=== PATIENT | male | born 2000 | race Caucasian/White ===

== ENCOUNTER 2020-04-16 20:04 | Inpatient (IN) | payer OTHER, SELFPAY ==
[2020-04-16 20:11] VITALS: BP 136/82; PULSE 82; RESP 20; TEMP 37.1; O2SAT 97
[2020-04-16 20:16] VITALS: BP 136/81; PULSE 82; RESP 20; TEMP 37.1; O2SAT 97; BMI 26.6
[2020-04-16 21:38] VITALS: BP 124/77; PULSE 55; RESP 20; TEMP 36.8; O2SAT 99
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
[2020-04-16 23:47] VITALS: BP 143/94; PULSE 84; RESP 18; TEMP 36.1; O2SAT 95
--- NOTE | 2020-04-17 00:42 | PC.NURSE ---
N clinician with patient and programming instructor, patient seems engaged, will continue to monitor.
--- NOTE | 2020-04-17 01:30 | PC.NURSE ---
Patient being assessed by the [facility] clinician, patient is on section 12, in patient bed search, patient provider made aware. Patient in bed watching TV. Will continue to monitor..
--- NOTE | 2020-04-17 02:04 | PC.NURSE ---
Patient in bed appears sleeping, no distress observed/reported. Respiration +/=/non-labored bilaterally. Will continue to monitor.
--- NOTE | 2020-04-17 06:02 | PC.NURSE ---
Patient in bed appears sleeping, no distress observed/reported, respiration +/=/non-labored bilaterally. Will continue to monitor.
--- NOTE | 2020-04-17 07:22 | PC.NURSE ---
Report received from ANDREW Sharma. Pt resting, resp unlabored
[2020-04-17 08:38] LABS: Glucose Urine UA NEG (NEG); Leukocyte Esterase Urine NEG (NEG); Nitrite Urine NEG (NEG); PH 6.5 (5.0-8.0); Urine Blood NEG (NEG); Urine Ketones NEG (NEG); Urine Protein 1+ MG/DL (NEG-TRACE)
[2020-04-17 08:40] LABS: Appearance Urine CLEAR; Color Urine YELLOW
[2020-04-17 08:50] LABS: RBC Urine 0-2 /HPF (0); WBC Urine 0 /HPF (0-4)
[2020-04-17 09:01] VITALS: BP 126/80; PULSE 57; RESP 16; TEMP 36.6; O2SAT 99
[2020-04-17 09:13] LABS: Amphetamine Screen Urine Not Detected (Not Detect); Barbiturates, Urine Not Detected (Not Detect); Benzodiazepines Screen Urine Not Detected (Not Detect); Cannabinoid Screen Urine POSITIVE (Not Detect); Cocaine Screen Urine Not Detected (Not Detect); Opiate Screen Urine Not Detected (Not Detect); Phencyclidine Screen Urine Not Detected (Not Detect)
[2020-04-17 09:52] VITALS: BP 126/80; PULSE 57; RESP 20; TEMP 36.1; O2SAT 99
--- NOTE | 2020-04-17 11:09 | PC.NURSE ---
Pt evaluated w/ phlebotomy technologist present. pt aware that he will going to [facility]. inpatient process explained to patient. Pt states he has been hospitalized in the past. pt states that at the moment, he is doing well. currently on the phone, affect bright.
[2020-04-17 11:39] LABS: MANUAL DIFF FLAG NO
[2020-04-17 11:51] LABS: Basophils Percent Auto 0.3 % (0-2); Eosinophils Percent Auto 0.4 % (0-4); Hematocrit 49.5 % (42-52); Hemoglobin 17.1 g/dl (14.0-18.0); Imm Gran Abs Auto 0.05 X10*3/uL (0.00-0.03); Imm Gran Pct Auto 0.5 % (0.0-0.4); Lymphocytes Absolute Auto 2.5 X10*3/uL (1.2-4.9); Lymphocytes Percent Auto 23.9 % (20-40); Mean Corpuscular HGB Conc 34.5 g/dl (31.0-36.0); Mean Corpuscular Hemoglobin 31.5 pg (27.0-33.0); Mean Corpuscular Volume 91.3 fL (80-98); Mean Platelet Volume 10.2 fL (9.4-12.4); Monocytes Absolute Auto 0.9 X10*3/uL (0.1-1.2); Monocytes Percent Auto 8.4 % (2-11); Neutrophils Absolute Auto 6.9 X10*3/uL (2.0-8.3); Neutrophils Percent Auto 66.5 % (45-73); Platelet Count 265 X10*3/uL (160-400); Red Blood Count 5.42 X10*6/uL (4.60-5.80); White Blood Count 10.3 X10*3/uL (4.8-10.8)
[2020-04-17 12:29] LABS: SARS COV2 PCR INHOUSE NEGATIVE (Negative)
[2020-04-17 12:31] LABS: Alanine Aminotransferase 12 U/L (0-40); Alkaline Phosphatase 65 U/L (39-117); Anion Gap 13 (12-20); Aspartate Amino Transferase 24 U/L (5-37); Bilirubin Direct 0.4 mg/dL (0.0-0.5); Bilirubin Total 1.3 mg/dL (0.0-1.0); Blood Urea Nitrogen 21 mg/dL (9-16); Calcium 9.9 mg/dL (8.4-10.2); Carbon Dioxide 28 mmol/L (22-29); Chloride 102 mmol/L (96-108); Creatinine Clr Calc Pharmacy 72.8; Estimated Glomerular Filt Rate 59; Glucose Random 87 mg/dL (60-115); Potassium 3.8 mmol/l (3.3-5.1); Sodium 139 mmol/L (135-145)
--- NOTE | 2020-04-17 13:28 | PC.NURSE ---
Report given to ANDREW Franco on [facility]
[2020-04-17 18:00] VITALS: BP 140/88; PULSE 60; RESP 18; TEMP 36.8; O2SAT 98
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
[2020-04-17] MEDS: Mirtazapine 7.5 MG TABLET PO (20:54)
[2020-04-18 06:00] VITALS: BP 137/76; PULSE 59; RESP 18; TEMP 36.8
[2020-04-18 07:44] LABS: MANUAL DIFF FLAG NO
[2020-04-18 07:58] LABS: Basophils Percent Auto 0.4 % (0-2); Eosinophils Absolute Auto 0.1 X10*3/uL (0.0-0.4); Eosinophils Percent Auto 1.1 % (0-4); Hematocrit 47.4 % (42-52); Imm Gran Abs Auto 0.06 X10*3/uL (0.00-0.03); Imm Gran Pct Auto 0.7 % (0.0-0.4); Lymphocytes Percent Auto 33.8 % (20-40); Mean Corpuscular HGB Conc 33.8 g/dl (31.0-36.0); Mean Corpuscular Hemoglobin 31.5 pg (27.0-33.0); Mean Corpuscular Volume 93.3 fL (80-98); Mean Platelet Volume 10.1 fL (9.4-12.4); Monocytes Absolute Auto 0.7 X10*3/uL (0.1-1.2); Monocytes Percent Auto 8.2 % (2-11); Neutrophils Percent Auto 55.8 % (45-73); Platelet Count 225 X10*3/uL (160-400); Red Blood Count 5.08 X10*6/uL (4.60-5.80); Red Cell Distribution Width 12.7 % (11.0-16.0); White Blood Count 8.9 X10*3/uL (4.8-10.8)
[2020-04-18 08:25] LABS: Alanine Aminotransferase 11 U/L (0-40); Albumin Level 4.5 g/dL (3.5-5.0); Alkaline Phosphatase 58 U/L (39-117); Anion Gap 10 (12-20); Aspartate Amino Transferase 21 U/L (5-37); Bilirubin Total 1.3 mg/dL (0.0-1.0); Blood Urea Nitrogen 18 mg/dL (9-16); Calcium 9.5 mg/dL (8.4-10.2); Carbon Dioxide 32 mmol/L (22-29); Chloride 103 mmol/L (96-108); Cholesterol 139 mg/dL; Creatinine Clr Calc Pharmacy 75.3; Estimated Glomerular Filt Rate > 60; Glucose Fasting 80 mg/dL (60-99); HDL Cholesterol 39 mg/dL; LDL Cholesterol Calculated 89 mg/dl; Sodium 141 mmol/L (135-145); Total Protein 7.3 g/dL (6.5-8.0); Triglycerides 55 mg/dL
[2020-04-18 08:39] LABS: Free T4 (Free Thyroxine) 1.24 ng/dL (0.71-1.85); Thyroid Stimulating Hormone 0.24 mIU/mL (0.32-4.0)
[2020-04-18] MEDS: Lidocaine 4 % Patch ADH..PATCH 1 PATCH TRANSDERMA (08:40)
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
[2020-04-18 18:00] VITALS: BP 141/85; PULSE 65; TEMP 35.9
[2020-04-18] MEDS: Mirtazapine 7.5 MG TABLET PO (23:28)
[2020-04-19 06:10] VITALS: BP 138/78; PULSE 51; RESP 16; TEMP 36.3
[2020-04-19] MEDS: Lidocaine 4 % Patch ADH..PATCH 1 PATCH TRANSDERMA (09:21)
[2020-04-19 13:28] LABS: MANUAL DIFF FLAG NO
[2020-04-19] MEDS: Acetaminophen 325 MG TABLET 650 MG PO (13:28)
[2020-04-19 13:32] LABS: Basophils Percent Auto 0.3 % (0-2); Eosinophils Absolute Auto 0.1 X10*3/uL (0.0-0.4); Eosinophils Percent Auto 1.2 % (0-4); Hematocrit 49.1 % (42-52); Hemoglobin 16.9 g/dl (14.0-18.0); Imm Gran Abs Auto 0.05 X10*3/uL (0.00-0.03); Imm Gran Pct Auto 0.5 % (0.0-0.4); Lymphocytes Absolute Auto 2.4 X10*3/uL (1.2-4.9); Lymphocytes Percent Auto 22.7 % (20-40); Mean Corpuscular HGB Conc 34.4 g/dl (31.0-36.0); Mean Corpuscular Hemoglobin 31.8 pg (27.0-33.0); Mean Corpuscular Volume 92.3 fL (80-98); Mean Platelet Volume 10.1 fL (9.4-12.4); Monocytes Absolute Auto 0.9 X10*3/uL (0.1-1.2); Monocytes Percent Auto 8.2 % (2-11); Neutrophils Percent Auto 67.1 % (45-73); Platelet Count 261 X10*3/uL (160-400); Red Blood Count 5.32 X10*6/uL (4.60-5.80); Red Cell Distribution Width 12.6 % (11.0-16.0); White Blood Count 10.4 X10*3/uL (4.8-10.8)
[2020-04-19 14:05] LABS: Alanine Aminotransferase 16 U/L (0-40); Alkaline Phosphatase 69 U/L (39-117); Anion Gap 12 (12-20); Aspartate Amino Transferase 42 U/L (5-37); Bilirubin Total 0.6 mg/dL (0.0-1.0); Blood Urea Nitrogen 22 mg/dL (9-16); Carbon Dioxide 31 mmol/L (22-29); Chloride 101 mmol/L (96-108); Creatinine Clr Calc Pharmacy 76.9; Estimated Glomerular Filt Rate > 60; Glucose Random 80 mg/dL (60-115); Potassium 4.2 mmol/l (3.3-5.1); Sodium 140 mmol/L (135-145)
[2020-04-19 14:13] LABS: Calcium 10.3 mg/dL (8.4-10.2)
[2020-04-19 14:19] LABS: TSH reflex Free T4 0.34 mIU/mL (0.32-4.0)
[2020-04-19 14:25] LABS: Glucose Urine UA NEG (NEG); Leukocyte Esterase Urine NEG (NEG); Nitrite Urine NEG (NEG); PH 6.5 (5.0-8.0); Urine Blood 1+ (NEG); Urine Ketones NEG (NEG); Urine Protein 2+ MG/DL (NEG-TRACE)
[2020-04-19 14:38] LABS: Appearance Urine CLEAR; Color Urine YELLOW
[2020-04-19 14:59] LABS: RBC Urine 0 /HPF (0); Squamous Epithelial Cell Urine TRACE /LPF; WBC Urine 0 /HPF (0-4)
[2020-04-19 18:00] VITALS: BP 131/93; PULSE 83; TEMP 37.1
[2020-04-19] MEDS: Mirtazapine 7.5 MG TABLET PO (20:20)
[2020-04-19 21:20] VITALS: BP 132/97; PULSE 90; TEMP 36.5
--- NOTE | 2020-04-19 23:38 | HO.PSYCHPN ---
Subjective Subjective Reason For Visit: Anxiety Subjective Notes: Conditional Voluntary Interim History: pt depressed withdrawn anxious Medication Compliance: Yes Side effects from medications: Yes Mental Status Exam Mental Status Exam Patient Appearance: Well Grooomed Patient Orientation: Person, Place, Time and Situation Level of Consciousness: Awake Patient Behavior: Appropriate Affect Description: Constricted, Anxious and Sad Ability to Follow Directions: Good Diagnostics Vital Signs (24Hr): Vital Signs - 24 hr 04/19/20 06:10 04/19/20 18:00 04/19/20 21:20 Temperature 97.4 F 98.7 F 97.7 F Pulse Rate 51 83 90 Respiratory Rate 16 Blood Pressure 138/78 131/93 H 132/97 H Body Mass Index 26.6 Labs Results: 04/19/20 13:15 04/20/20 15:06 Labs: Laboratory Results - last 48 hr 04/18/20 04/18/20 04/19/20 07:33 07:33 13:15 WBC 8.9 RBC 5.08 Hgb 16.0 Hct 47.4 MCV 93.3 MCH 31.5 MCHC 33.8 RDW 12.7 Plt Count 225 MPV 10.1 Immature Gran % (Auto) 0.7 H Neut % (Auto) 55.8 Lymph % (Auto) 33.8 [place] % (Auto) 8.2 Eos % (Auto) 1.1 Baso % (Auto) 0.4 Lymph # (Auto) 3.0 [place] # (Auto) 0.7 Eos # (Auto) 0.1 Baso # (Auto) 0.0 Abs Immat Gran (auto) 0.06 H Absolute Neuts (auto) 5.0 Absolute Nucleated RBC 0.000 Nucleated RBC % (auto) 0.0 Sodium 141 140 Potassium 4.0 4.2 Chloride 103 101 Carbon Dioxide 32 H 31 H Anion Gap 10 L 12 BUN 18 H 22 H Creatinine 1.45 H 1.42 H Estim Creat Clear Calc 75.3 76.9 Estimated GFR > 60 > 60 Random Glucose 80 Fasting Glucose 80 Calcium 9.5 10.3 H Total Bilirubin 1.3 H 0.6 AST 21 42 H D ALT 11 16 Alkaline Phosphatase 58 69 Total Protein 7.3 8.0 Albumin 4.5 5.0 Triglycerides 55 Cholesterol 139 LDL Cholesterol, Calc 89 HDL Cholesterol 39 TSH 0.24 L Free T4 1.24 Urine Color Urine Appearance Urine pH Ur Specific [place] Urine Protein Urine Glucose (UA) Urine Ketones Urine Blood Urine Nitrite Ur Leukocyte Esterase Urine RBC Urine WBC Ur Squamous Epith Cells Urine Bacteria Urine Sperm 04/19/20 04/19/20 04/19/20 13:15 13:15 14:13 WBC 10.4 RBC 5.32 Hgb 16.9 Hct 49.1 MCV 92.3 MCH 31.8 MCHC 34.4 RDW 12.6 Plt Count 261 MPV 10.1 Immature Gran % (Auto) 0.5 H Neut % (Auto) 67.1 Lymph % (Auto) 22.7 [place] % (Auto) 8.2 Eos % (Auto) 1.2 Baso % (Auto) 0.3 Lymph # (Auto) 2.4 [place] # (Auto) 0.9 Eos # (Auto) 0.1 Baso # (Auto) 0.0 Abs Immat Gran (auto) 0.05 H Absolute Neuts (auto) 7.0 Absolute Nucleated RBC 0.000 Nucleated RBC % (auto) 0.0 Sodium Potassium Chloride Carbon Dioxide Anion Gap BUN Creatinine Estim Creat Clear Calc Estimated GFR Random Glucose Fasting Glucose Calcium Total Bilirubin AST ALT Alkaline Phosphatase Total Protein Albumin Triglycerides Cholesterol LDL Cholesterol, Calc HDL Cholesterol TSH 0.34 Free T4 Urine Color YELLOW Urine Appearance CLEAR Urine pH 6.5 Ur Specific [place] 1.020 Urine Protein 2+ H Urine Glucose (UA) NEG Urine Ketones NEG Urine Blood 1+ H Urine Nitrite NEG Ur Leukocyte Esterase NEG Urine RBC 0 Urine WBC 0 Ur Squamous Epith Cells TRACE Urine Bacteria NONE Urine Sperm Medications Medications Current Medications Generic Name Dose Route Start Last Admin Trade Name Freq PRN Reason Stop Dose Admin Acetaminophen 650 mg 04/17/20 17:51 04/19/20 13:28 Acetaminophen 325 Mg Tablet PO 650 mg Q6H PRN Administration Headache/Pain Mild Scale (1-3) Al Hydroxide/Mg Hydroxide 30 ml 04/17/20 17:51 Magnesium Hydrox/Alum Hydrox 30 Ml Oral.Susp PO Q6H PRN Heartburn/Nausea Hydroxyzine HCl 25 mg 04/17/20 17:51 Hydroxyzine Hcl 25 Mg Tablet PO BEDTIME PRN Anxiety Lidocaine 1 patch 04/18/20 09:00 04/19/20 09:21 Lidocaine 4 % Patch Adh..Patch TRANSDERMA 1 patch DAILY [place] Administration Protocol Lorazepam 0.5 mg 04/17/20 18:00 Lorazepam 0.5 Mg Tablet PO Q8H PRN Anxiety Magnesium Hydroxide 30 ml 04/17/20 17:51 Milk Of Magnesia 30 Ml Oral.Susp PO DAILY PRN Constipation Mirtazapine 7.5 mg 04/17/20 21:00 04/19/20 20:20 Mirtazapine 7.5 Mg Tablet PO 7.5 mg BEDTIME [place] Administration Pt Own: Clotrimazole 1 each 04/19/20 09:00 04/19/20 20:20 /Betamethasone Cream TOPICAL 1 each BID [place] Administration Trazodone HCl 50 mg 04/17/20 17:51 Trazodone Hcl 50 Mg Tablet PO BEDTIME PRN Insomnia Allergies Allergies Allergy/AdvReac Type Severity Reaction Status Date / Time aripiprazole [From Abilify] AdvReac Restless/Ag Verified 04/18/20 15:31 itation methylphenidate AdvReac Restless/Ag Verified 04/18/20 15:31 [From Ritalin] itation Assessment & Plan Assessment & Plan (1) CKD (chronic kidney disease): Status: Chronic Code(s): N18.9 - Chronic kidney disease, unspecified Assessment and Plan: 19-year-old man admitted to for behavioral health. He reported history long-term arthritis, high blood pressure and possible kidney disease. He reports that he does not take any medication for his blood pressure and has not seen any specialists in the past. Hypertension. Stable blood pressure this time, not on any antihypertensives. Will hold off on starting any medication, he will need to follow up with a primary care provider as outpatient. CKD. Seems chronic, likely related to high blood pressure is well. Will also check A1c. Will consult nephrology, for follow up regarding renal function. Discussed with Dr. Gonzalez (2) Major depression, single episode: Status: Acute Code(s): F32.9 - Major depressive disorder, single episode, unspecified (3) PTSD (post-traumatic stress disorder): Status: Acute Code(s): F43.10 - Post-traumatic stress disorder, unspecified Greater than 50% of the session was spent on counseling and/or coordination of care Patient educated on: diagnosis and medication risk/benefits Informed Consent: understands
[2020-04-20 06:19] VITALS: BP 117/70; PULSE 52; RESP 16; TEMP 36.2; O2SAT 100
[2020-04-20] MEDS: Lidocaine 4 % Patch ADH..PATCH 1 PATCH TRANSDERMA (09:04)
--- NOTE | 2020-04-20 14:36 | P.CONIM_ITS ---
History of Present Illness Data of Consult Service Date: 04/20/20 Requesting physician: Galo Helms Primary Care Provider: Roshan Cook MD [facility] Reason for consult: medical consultation 19-year-old man with history of hypertension, chronic kidney disease and depression admitted to for behavioral health. He denied any acute medical problems. His vital signs are stable. Does have a history of hypertension and chronic kidney disease however is not currently being treated for either at this time. His vital signs and labs are within acceptable limits. Review of Systems Review of Systems: Denies any recent fever chills or decrease in appetite respiratory denies any shortness of breath coverage production cardiovascular is adjustment of any PND or edema gastrointestinal denies any dysphagia abdominal pain nausea vomiting or diarrhea genitourinary denies any dysuria frequency or hematuria musculoskeletal reports chronic pain from arthritis neuropsych denies any weakness or seizures all other systems reviewed are negative [facility] Medical History (Updated 04/20/20 @ 14:38 by Melody Birch NP) CKD (chronic kidney disease) Hypertension Pertinent family history: Denies cardiac disease Surgical History (Updated 04/20/20 @ 15:47 by Melody Birch NP) H/O wrist surgery Social History Household Members: Spouse Housing: Apartment Do you presently have visiting nurse or other home services: No Smoking Status: Former smoker Smoked in Last 30 Days: Yes Smoking Quit Date: 04/15/20 Patient Interested in Nicotine Replacement: No Patient Given Instructions on How to Stop Smoking: No Second Hand Smoke Exposure: No Use of substances other than those prescribed or required for medical reasons: Yes Substance Use Type: Marijuana Substance Use Frequency: Chronic Longstanding Last Used Substance: Days (ago) Currently Displaying Signs/Symptoms of Drug Intoxication Withdrawal: No Any prior treatment program specific to substance use: No Have you been hit, kicked, punched, or otherwise hurt by someone within the past year? If so, by whom?: No Do you feel safe in your current relationship?: Yes Is there a partner from a previous relationship who is making you feel unsafe now?: No Are you made to feel afraid or neglected: No Spiritual Healthcare Practices: n/a Tenriism Healthcare Practices: n/a Cultural Healthcare Practices: n/a Advance Directives: No Advance Directives Information Provided: Yes Do you have thoughts of harming others: None Do you have a plan to hurt others: No Plan Recently lost weight without trying: Yes service: No Sexual orientation: Straight/Heterosexual Meds Allergies Allergy/AdvReac Type Severity Reaction Status Date / Time aripiprazole [From Abilify] AdvReac Restless/Ag Verified 04/18/20 15:31 itation methylphenidate AdvReac Restless/Ag Verified 04/18/20 15:31 [From Ritalin] itation Physical Exam Vital Signs and Narrative: Vital Signs: Last Vital Signs Temp 97.1 F 04/20/20 06:19 Pulse 52 04/20/20 06:19 Resp 16 04/20/20 06:19 BP 117/70 04/20/20 06:19 Pulse Ox 100 04/20/20 06:19 Body Mass Index 26.6 Appearing in no acute distress head is normocephalic atraumatic eyes pupils are PERRLA sclera is anicteric mouth throat mucous membranes are intact and moist neck is supple no lymphadenopathy, no JVD noted lung sounds are clear to auscultation heart regular rate rhythm, clear S1, S2 positive bowel sounds, abdomen is soft, nontender neuro patient is alert x3, no focal deficits Results Labs Labs: Laboratory Tests 04/17/20 04/17/20 04/17/20 08:18 08:18 11:27 WBC 10.3 RBC 5.42 Hgb 17.1 Hct 49.5 MCV 91.3 MCH 31.5 MCHC 34.5 RDW 13.0 Plt Count 265 MPV 10.2 Immature Gran % (Auto) 0.5 H Neut % (Auto) 66.5 Lymph % (Auto) 23.9 Elliott % (Auto) 8.4 Eos % (Auto) 0.4 Baso % (Auto) 0.3 Lymph # (Auto) 2.5 Elliott # (Auto) 0.9 Eos # (Auto) 0.0 Baso # (Auto) 0.0 Abs Immat Gran (auto) 0.05 H Absolute Neuts (auto) 6.9 Absolute Nucleated RBC 0.000 Nucleated RBC % (auto) 0.0 Sodium Potassium Chloride Carbon Dioxide Anion Gap BUN Creatinine Estim Creat Clear Calc Estimated GFR Random Glucose Fasting Glucose Calcium Total Bilirubin Direct Bilirubin AST ALT Alkaline Phosphatase Total Protein Albumin Triglycerides Cholesterol LDL Cholesterol, Calc HDL Cholesterol TSH Free T4 Urine Color YELLOW Urine Appearance CLEAR Urine pH 6.5 Ur Specific [place] 1.020 Urine Protein 1+ H Urine Glucose (UA) NEG Urine Ketones NEG Urine Blood NEG Urine Nitrite NEG Ur Leukocyte Esterase NEG Urine RBC 0-2 Urine WBC 0 Ur Squamous Epith Cells NONE Urine Bacteria NONE Urine Sperm Urine Opiates Screen Not Detected Ur Barbiturates Screen Not Detected Ur Phencyclidine Scrn Not Detected Ur Amphetamines Screen Not Detected U Benzodiazepines Scrn Not Detected Urine Cocaine Screen Not Detected U Marijuana (THC) Screen POSITIVE H Coronavirus (PCR) 04/17/20 04/17/20 04/18/20 11:27 11:27 07:33 WBC 8.9 RBC 5.08 Hgb 16.0 Hct 47.4 MCV 93.3 MCH 31.5 MCHC 33.8 RDW 12.7 Plt Count 225 MPV 10.1 Immature Gran % (Auto) 0.7 H Neut % (Auto) 55.8 Lymph % (Auto) 33.8 Elliott % (Auto) 8.2 Eos % (Auto) 1.1 Baso % (Auto) 0.4 Lymph # (Auto) 3.0 Elliott # (Auto) 0.7 Eos # (Auto) 0.1 Baso # (Auto) 0.0 Abs Immat Gran (auto) 0.06 H Absolute Neuts (auto) 5.0 Absolute Nucleated RBC 0.000 Nucleated RBC % (auto) 0.0 Sodium 139 Potassium 3.8 Chloride 102 Carbon Dioxide 28 Anion Gap 13 BUN 21 H Creatinine 1.50 H Estim Creat Clear Calc 72.8 Estimated GFR 59 Random Glucose 87 Fasting Glucose Calcium 9.9 Total Bilirubin 1.3 H Direct Bilirubin 0.4 AST 24 ALT 12 Alkaline Phosphatase 65 Total Protein 8.0 Albumin 5.0 Triglycerides Cholesterol LDL Cholesterol, Calc HDL Cholesterol TSH Free T4 Urine Color Urine Appearance Urine pH Ur Specific [place] Urine Protein Urine Glucose (UA) Urine Ketones Urine Blood Urine Nitrite Ur Leukocyte Esterase Urine RBC Urine WBC Ur Squamous Epith Cells Urine Bacteria Urine Sperm Urine Opiates Screen Ur Barbiturates Screen Ur Phencyclidine Scrn Ur Amphetamines Screen U Benzodiazepines Scrn Urine Cocaine Screen U Marijuana (THC) Screen Coronavirus (PCR) NEGATIVE 04/18/20 04/19/20 04/19/20 07:33 13:15 13:15 WBC 10.4 RBC 5.32 Hgb 16.9 Hct 49.1 MCV 92.3 MCH 31.8 MCHC 34.4 RDW 12.6 Plt Count 261 MPV 10.1 Immature Gran % (Auto) 0.5 H Neut % (Auto) 67.1 Lymph % (Auto) 22.7 Elliott % (Auto) 8.2 Eos % (Auto) 1.2 Baso % (Auto) 0.3 Lymph # (Auto) 2.4 Elliott # (Auto) 0.9 Eos # (Auto) 0.1 Baso # (Auto) 0.0 Abs Immat Gran (auto) 0.05 H Absolute Neuts (auto) 7.0 Absolute Nucleated RBC 0.000 Nucleated RBC % (auto) 0.0 Sodium 141 140 Potassium 4.0 4.2 Chloride 103 101 Carbon Dioxide 32 H 31 H Anion Gap 10 L 12 BUN 18 H 22 H Creatinine 1.45 H 1.42 H Estim Creat Clear Calc 75.3 76.9 Estimated GFR > 60 > 60 Random Glucose 80 Fasting Glucose 80 Calcium 9.5 10.3 H Total Bilirubin 1.3 H 0.6 Direct Bilirubin AST 21 42 H D ALT 11 16 Alkaline Phosphatase 58 69 Total Protein 7.3 8.0 Albumin 4.5 5.0 Triglycerides 55 Cholesterol 139 LDL Cholesterol, Calc 89 HDL Cholesterol 39 TSH 0.24 L Free T4 1.24 Urine Color Urine Appearance Urine pH Ur Specific [place] Urine Protein Urine Glucose (UA) Urine Ketones Urine Blood Urine Nitrite Ur Leukocyte Esterase Urine RBC Urine WBC Ur Squamous Epith Cells Urine Bacteria Urine Sperm Urine Opiates Screen Ur Barbiturates Screen Ur Phencyclidine Scrn Ur Amphetamines Screen U Benzodiazepines Scrn Urine Cocaine Screen U Marijuana (THC) Screen Coronavirus (PCR) 04/19/20 04/19/20 13:15 14:13 WBC RBC Hgb Hct MCV MCH MCHC RDW Plt Count MPV Immature Gran % (Auto) Neut % (Auto) Lymph % (Auto) Elliott % (Auto) Eos % (Auto) Baso % (Auto) Lymph # (Auto) Elliott # (Auto) Eos # (Auto) Baso # (Auto) Abs Immat Gran (auto) Absolute Neuts (auto) Absolute Nucleated RBC Nucleated RBC % (auto) Sodium Potassium Chloride Carbon Dioxide Anion Gap BUN Creatinine Estim Creat Clear Calc Estimated GFR Random Glucose Fasting Glucose Calcium Total Bilirubin Direct Bilirubin AST ALT Alkaline Phosphatase Total Protein Albumin Triglycerides Cholesterol LDL Cholesterol, Calc HDL Cholesterol TSH 0.34 Free T4 Urine Color YELLOW Urine Appearance CLEAR Urine pH 6.5 Ur Specific [place] 1.020 Urine Protein 2+ H Urine Glucose (UA) NEG Urine Ketones NEG Urine Blood 1+ H Urine Nitrite NEG Ur Leukocyte Esterase NEG Urine RBC 0 Urine WBC 0 Ur Squamous Epith Cells TRACE Urine Bacteria NONE Urine Sperm Urine Opiates Screen Ur Barbiturates Screen Ur Phencyclidine Scrn Ur Amphetamines Screen U Benzodiazepines Scrn Urine Cocaine Screen U Marijuana (THC) Screen Coronavirus (PCR) Assessment and Plan (1) CKD (chronic kidney disease): Status: Chronic 19-year-old man admitted to for behavioral health. He reported his tory long-term arthritis, high blood pressure and possible kidney disease. He reports that he does not take any medication for his blood pressure and has not seen any specialists in the past. Hypertension. Stable blood pressure this time, not on any antihypertensives. Will hold off on starting any medication, he will need to follow up with a primary care provider as outpatient. CKD. Seems chronic, likely related to high blood pressure is well. Will also check A1c. Will consult nephrology, for follow up regarding renal function. Discussed with Dr. Gonzalez
[2020-04-20 14:59] LABS: Glucose Urine UA NEG (NEG); Leukocyte Esterase Urine NEG (NEG); Nitrite Urine NEG (NEG); Urine Blood TRACE (NEG); Urine Ketones NEG (NEG); Urine Protein 2+ MG/DL (NEG-TRACE)
[2020-04-20 15:02] LABS: Appearance Urine CLEAR; Color Urine STRAW
[2020-04-20 15:29] LABS: Estimated Average Glucose 97 mg/dL
[2020-04-20 15:48] LABS: Anion Gap 15 (12-20); Blood Urea Nitrogen 26 mg/dL (9-16); Calcium 9.5 mg/dL (8.4-10.2); Carbon Dioxide 27 mmol/L (22-29); Chloride 104 mmol/L (96-108); Estimated Glomerular Filt Rate > 60; Glucose Random 83 mg/dL (60-115); Potassium 4.5 mmol/l (3.3-5.1); Sodium 141 mmol/L (135-145)
[2020-04-20 16:00] LABS: RBC Urine 0-2 /HPF (0); WBC Urine 0 /HPF (0-4)
[2020-04-20 18:00] VITALS: BP 125/86; PULSE 66; TEMP 36.5
[2020-04-20 19:43] LABS: Triiodothyronine T3 Free 3.2 pg/mL (2.3-4.2)
[2020-04-20] MEDS: Mirtazapine 7.5 MG TABLET PO (21:56)
[2020-04-21 06:00] VITALS: BP 149/81; PULSE 53; RESP 16; TEMP 36.6
[2020-04-21 18:00] VITALS: BP 139/97; PULSE 78; TEMP 36.5
--- NOTE | 2020-04-21 20:20 | PM.CNNEP ---
History of Present Illness Reason for Consult Consult date: 04/21/20 Reason for consult: HTN and incr Scr Chief Complaint Chief complaint: Anxiety History of Present Illness Narrative: Admit d/t severe anxiety and noted incr Scr and HTN. Unclear if he has a h/o of these problems or been on meds to control HTN chronically. No Cp/SOB. Denies use of NSAIDs. No H/O kidney stones or GH. No FHx of kidney probs. Review of Systems Review of Systems Yes all other systems are reviewed and are negative [facility] Past Medical History Medical History (Updated 04/20/20 @ 14:38 by Melody Birch NP) CKD (chronic kidney disease) Hypertension Family History Pertinent family history: Denies cardiac disease Surgical History Surgical History (Updated 04/20/20 @ 15:47 by Melody Birch NP) H/O wrist surgery Social History Social History Household Members: Spouse Housing: Apartment Do you presently have visiting nurse or other home services: No Smoking Status: Former smoker Smoked in Last 30 Days: Yes Smoking Quit Date: 04/15/20 Patient Interested in Nicotine Replacement: No Patient Given Instructions on How to Stop Smoking: No Second Hand Smoke Exposure: No Use of substances other than those prescribed or required for medical reasons: Yes Substance Use Type: Marijuana Substance Use Frequency: Chronic Longstanding Last Used Substance: Days (ago) Currently Displaying Signs/Symptoms of Drug Intoxication Withdrawal: No Any prior treatment program specific to substance use: No Have you been hit, kicked, punched, or otherwise hurt by someone within the past year? If so, by whom?: No Do you feel safe in your current relationship?: Yes Is there a partner from a previous relationship who is making you feel unsafe now?: No Are you made to feel afraid or neglected: No Spiritual Healthcare Practices: n/a Bahai Healthcare Practices: n/a Cultural Healthcare Practices: n/a Advance Directives: No Advance Directives Information Provided: Yes Do you have thoughts of harming others: None Do you have a plan to hurt others: No Plan Recently lost weight without trying: Yes service: No Sexual orientation: Straight/Heterosexual Meds Allergies Allergy/AdvReac Type Severity Reaction Status Date / Time aripiprazole [From Abilify] AdvReac Restless/Ag Verified 04/18/20 15:31 itation methylphenidate AdvReac Restless/Ag Verified 04/18/20 15:31 [From Ritalin] itation Home Medications Medication Instructions Recorded Confirmed Type No Known Home Meds 04/21/20 04/21/20 History Physical Exam Vital Signs: Vital Signs Temp Pulse Resp BP 04/21/20 06:00 97.9 F 53 16 149/81 H Body Mass Index 26.6 Appearing in no acute distress head is normocephalic atraumatic eyes pupils are PERRLA sclera is anicteric mouth throat mucous membranes are intact and moist neck is supple no lymphadenopathy, no JVD noted lung sounds are clear to auscultation heart regular rate rhythm, clear S1, S2 positive bowel sounds, abdomen is soft, nontender neuro patient is alert x3, no focal deficits Results Lab Results Result Diagrams: 04/19/20 13:15 04/20/20 15:06 Lab results: Chemistry 04/19/20 04/20/20 13:15 15:06 Sodium 140 141 Potassium 4.2 4.5 Carbon Dioxide 31 H 27 BUN 22 H 26 H Creatinine 1.42 H 1.40 Calcium 10.3 H 9.5 Hematology 04/19/20 13:15 WBC 10.4 Hgb 16.9 Plt Count 261 Urinalysis 04/19/20 04/20/20 14:13 13:57 Urine Color YELLOW STRAW Urine Appearance CLEAR CLEAR Urine pH 6.5 6.0 Ur Specific [place] 1.020 1.020 Urine Protein 2+ H 2+ H Urine Glucose (UA) NEG NEG Urine Ketones NEG NEG Urine Blood 1+ H TRACE Urine Nitrite NEG NEG Ur Leukocyte Esterase NEG NEG Urine RBC 0 0-2 Urine WBC 0 0 Ur Squamous Epith Cells TRACE NONE Assessment and Plan (1) CKD (chronic kidney disease): Status: Chronic 19-year-old man admitted to for behavioral health. Ques of HTN and CKD as PMH unclear. He denies taking BP meds. 1. HTN: BPs noted elevated; ques essential HTN and may need to start meds if remains elevated 2. CKD 2: ques CKD; needs furhter eval including sero/urine studies 3. Psych REC: urone prot/Cr ratio and Urine microalb/Cr ratio; track BPs and futher sero/urine studies and renal U/S likely needed but will reassess need for these tests over next 1-2 days as we track BP and check urine studies (2) Major depression, single episode: Status: Acute (3) PTSD (post-traumatic stress disorder): Status: Acute
[2020-04-21] MEDS: Mirtazapine 7.5 MG TABLET PO (21:58)
--- NOTE | 2020-04-21 23:00 | HO.PSYCHPN ---
Subjective Subjective Reason For Visit: Anxiety Interim History: pt depressed withdrawn anxious ,but improving with mirtazapine MED CONSULT FOR RENAL INSUFF Mental Status Exam Mental Status Exam Patient Appearance: Well Grooomed Patient Orientation: Person, Place, Time and Situation Level of Consciousness: Awake Patient Behavior: Appropriate and Good Eye Contact Mood Description: Calm, Constricted and Flat Affect Description: Constricted, Anxious and Sad (improving) Ability to Follow Directions: Good Speech Pattern: Clear Memory Description: Intact Hallucinations: Visual (vague shadows ) Delusions: Not Present Thought Content: positive for [place], negative for Suicidal Ideation and negative for Homicidal Ideation Depressive Symptoms: Increased Anxiety, Insomnia and Diff. Making Decisions Judgement: Good Diagnostics Vital Signs (24Hr): Vital Signs - 24 hr 04/21/20 06:00 Temperature 97.9 F Pulse Rate 53 Respiratory Rate 16 Blood Pressure 149/81 H Body Mass Index 26.6 Labs Results: 04/19/20 13:15 04/20/20 15:06 Labs: Laboratory Results - last 48 hr 04/19/20 04/20/20 04/20/20 13:15 13:57 15:06 Sodium 141 Potassium 4.5 Chloride 104 Carbon Dioxide 27 Anion Gap 15 BUN 26 H Creatinine 1.40 Estim Creat Clear Calc 78.0 Estimated GFR > 60 Random Glucose 83 Estimat Average Glucose Hemoglobin A1c % Calcium 9.5 Free T3 3.2 Urine Color STRAW Urine Appearance CLEAR Urine pH 6.0 Ur Specific [place] 1.020 Urine Protein 2+ H Urine Glucose (UA) NEG Urine Ketones NEG Urine Blood TRACE Urine Nitrite NEG Ur Leukocyte Esterase NEG Urine RBC 0-2 Urine WBC 0 Ur Squamous Epith Cells NONE Urine Bacteria NONE 04/20/20 15:06 Sodium Potassium Chloride Carbon Dioxide Anion Gap BUN Creatinine Estim Creat Clear Calc Estimated GFR Random Glucose Estimat Average Glucose 97 Hemoglobin A1c % 5.0 Calcium Free T3 Urine Color Urine Appearance Urine pH Ur Specific [place] Urine Protein Urine Glucose (UA) Urine Ketones Urine Blood Urine Nitrite Ur Leukocyte Esterase Urine RBC Urine WBC Ur Squamous Epith Cells Urine Bacteria Medications Medications Current Medications Generic Name Dose Route Start Last Admin Trade Name Freq PRN Reason Stop Dose Admin Acetaminophen 650 mg 04/17/20 17:51 04/19/20 13:28 Acetaminophen 325 Mg Tablet PO 650 mg Q6H PRN Administration Headache/Pain Mild Scale (1-3) Al Hydroxide/Mg Hydroxide 30 ml 04/17/20 17:51 Magnesium Hydrox/Alum Hydrox 30 Ml Oral.Susp PO Q6H PRN Heartburn/Nausea Hydroxyzine HCl 25 mg 04/17/20 17:51 Hydroxyzine Hcl 25 Mg Tablet PO BEDTIME PRN Anxiety Lorazepam 0.5 mg 04/17/20 18:00 Lorazepam 0.5 Mg Tablet PO Q8H PRN Anxiety Magnesium Hydroxide 30 ml 04/17/20 17:51 Milk Of Magnesia 30 Ml Oral.Susp PO DAILY PRN Constipation Mirtazapine 7.5 mg 04/17/20 21:00 04/21/20 21:58 Mirtazapine 7.5 Mg Tablet PO 7.5 mg BEDTIME GE[place]NA Administration Pt Own: Clotrimazole 1 each 04/19/20 09:00 04/21/20 21:58 /Betamethasone Cream TOPICAL 1 each BID [place] Administration Trazodone HCl 50 mg 04/17/20 17:51 Trazodone Hcl 50 Mg Tablet PO BEDTIME PRN Insomnia Allergies Allergies Allergy/AdvReac Type Severity Reaction Status Date / Time aripiprazole [From Abilify] AdvReac Restless/Ag Verified 04/18/20 15:31 itation methylphenidate AdvReac Restless/Ag Verified 04/18/20 15:31 [From Ritalin] itation Assessment & Plan Assessment & Plan (1) CKD (chronic kidney disease): Status: Chronic Code(s): N18.9 - Chronic kidney disease, unspecified Assessment and Plan: 19-year-old man admitted to for behavioral health. Ques of HTN and CKD as PMH unclear. He denies taking BP meds. 1. HTN: BPs noted elevated; ques essential HTN and may need to start meds if remains elevated 2. CKD 2: ques CKD; needs furhter eval including sero/urine studies 3. Psych REC: urone prot/Cr ratio and Urine microalb/Cr ratio; track BPs and futher sero/urine studies and renal U/S likely needed but will reassess need for these tests over next 1-2 days as we track BP and check urine studies (2) Major depression, single episode: Status: Acute Code(s): F32.9 - Major depressive disorder, single episode, unspecified Assessment and Plan: continue mirtazapine adjust as needed (3) PTSD (post-traumatic stress disorder): Status: Acute Code(s): F43.10 - Post-traumatic stress disorder, unspecified Assessment and Plan: psychoeducation continue mirtazapine id no significant current PTSD symptoms Greater than 50% of the session was spent on counseling and/or coordination of care Patient educated on: diagnosis, medication risk/benefits and medical condition Reason for contiued inpatient stay Substantial Risk for: inability to function and rapid decompensation
[2020-04-22 06:25] VITALS: BP 143/86; PULSE 47; RESP 16; TEMP 36.4; O2SAT 99
[2020-04-22 12:08] LABS: Creatinine Urine 110.58 mg/dL
[2020-04-22 12:17] LABS: Microalbum/Creatinine Ratio Ur 1213.6 ug/mg cr
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
== END 2020-04-22 14:48 | disposition home or self-care (01) | DRG 754 ==
LOC: HO.ED 04-17 14:52 → HO.PM5 04-17 15:26
PROVIDERS: Internal Medicine Nephrology; Nurse Practitioner Acute Care; Nurse Practitioner Family; Admitting Provider Psychiatry & Neurology Psychiatry; Emergency Provider Emergency Medicine; PCP Internal Medicine; Visit Provider Psychiatry & Neurology Psychiatry
DX: F32.9 Major depressive disorder, single episode, unspecified (principal); R45.851 Suicidal ideations; F43.10 Post-traumatic stress disorder, unspecified; F90.9 Attention-deficit hyperactivity disorder, unspecified type; I12.9 Hypertensive chronic kidney disease with stage 1 through stage 4 chronic kidney disease, or unspecified chronic kidney disease; N18.2 Chronic kidney disease, stage 2 (mild); Z20.828 Contact with and (suspected) exposure to other viral communicable diseases; Z87.891 Personal history of nicotine dependence; Z79.899 Other long term (current) drug therapy
CPT/HCPCS: 36415; 80048; 80053; 80061; 80076; 80307; 81001; 81003; 82043; 83036; 84439; 84443; 84481; 85025; 87635; 99222; 99232; 99239; 99285

== ENCOUNTER 2020-11-17 10:52 | Emergency (ER) | payer OTHER, SELFPAY ==
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
[2020-11-17 11:04] VITALS: BP 125/77; BP 131/80; PULSE 62; PULSE 80; RESP 18; TEMP 36.3; O2SAT 97; BMI 23.5
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
[2020-11-17] MEDS: Acetaminophen 325 MG TABLET 650 MG PO (12:02)
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
== END 2020-11-17 15:00 | disposition left against medical advice (07) ==
PROVIDERS: Emergency Provider Emergency Medicine
DX: S16.1XXA Strain of muscle, fascia and tendon at neck level, initial encounter (principal); V43.62XA Car passenger injured in collision with other type car in traffic accident, initial encounter; M79.644 Pain in right finger(s); R51.9 Headache, unspecified; I12.9 Hypertensive chronic kidney disease with stage 1 through stage 4 chronic kidney disease, or unspecified chronic kidney disease; N18.9 Chronic kidney disease, unspecified; F12.90 Cannabis use, unspecified, uncomplicated; Y93.89 Activity, other specified; Y92.414 Local residential or business street as the place of occurrence of the external cause; Y99.9 Unspecified external cause status; Z87.891 Personal history of nicotine dependence
CPT/HCPCS: 70450; 71046; 72125; 73110; 73130; 99284

== ENCOUNTER 2021-10-26 15:07 | Emergency (ER) | payer OTHER, SELFPAY ==
--- NOTE | ~2021-10-26 | CT_ITS ---
EXAMINATION: CT ABDOMEN AND PELVIS WITHOUT CONTRAST CLINICAL INFORMATION: 21-year-old male with left flank pain COMPARISON: None TECHNIQUE: Multidetector volumetric imaging was performed from the superior aspect of the liver through the pubic symphysis. Sagittal and coronal reformatted images were obtained on the technologist's workstation. This CT examination was performed using dose optimization techniques as appropriate, variously including the following: *Automated exposure control *Adjustment of mA and/or kV according to patient size (this includes techniques or standardized protocols for targeted exams where dose is matched to indication/reason for exam; i.e. extremities or head) *Use of iterative reconstruction technique DLP: 366 mGy-cm FINDINGS: LUNG BASES: The visualized lung bases are unremarkable. LIVER, GALLBLADDER, AND BILIARY TREE: The liver is normal in size, shape, and attenuation. No focal hepatic lesion or biliary ductal dilatation is present. The gallbladder is unremarkable with no evidence of radiopaque gallstones, gallbladder wall thickening, or obvious pericholecystic inflammatory changes. PANCREAS: Unremarkable. SPLEEN: Unremarkable. ADRENAL GLANDS: Unremarkable. KIDNEYS AND URETERS: Left kidney is lobulated with parenchymal calcifications in lower pole measured 0.4 cm, in upper pole punctate, in interpolar cortex conglomerate of 2 0.3 and 0.4 cm calcifications. There is no hydroureteronephrosis. Right kidney revealed lobulated contour as well with nonobstructing interpolar 2 mm calculus. BLADDER: Unremarkable. GASTROINTESTINAL TRACT: The small and large bowel are unremarkable. The appendix is unremarkable. ABDOMINAL WALL: No significant hernia is appreciated. LYMPH NODES: Normal. VASCULAR: Unremarkable. PELVIC VISCERA: Unremarkable. OSSEOUS STRUCTURES: Unremarkable. CT/CT abdomen pelvis wo con IMPRESSION: Bilateral nephrolithiasis more prominent on the left without hydroureteronephrosis Fleischner guidelines were followed.
[2021-10-26 15:39] VITALS: BP 136/90; PULSE 60; RESP 18; TEMP 36.6; O2SAT 98; BMI 21.9
[2021-10-26 15:55] LABS: MANUAL DIFF FLAG NO
[2021-10-26 15:57] LABS: Appearance Urine HAZY; Color Urine YELLOW; Glucose Urine UA 100 MG/DL (NEG); Leukocyte Esterase Urine NEG (NEG); Nitrite Urine NEG (NEG); Specific Gravity - Urine 1.015 (1.005-1.025); UACC Culture Trigger NO; Urine Blood NEG (NEG); Urine Ketones NEG (NEG); Urine Protein 2+ MG/DL (NEG-TRACE)
[2021-10-26 16:00] LABS: Basophils Percent Auto 0.5 % (0-2); Eosinophils Percent Auto 0.2 % (0-4); Hematocrit 44.3 % (42.0-52.0); Hemoglobin 15.3 g/dl (14.0-18.0); Imm Gran Abs Auto 0.02 X10*3/uL (0.00-0.03); Imm Gran Pct Auto 0.2 % (0.0-0.4); Lymphocytes Absolute Auto 1.4 X10*3/uL (1.2-4.9); Lymphocytes Percent Auto 17.5 % (20-40); Mean Corpuscular HGB Conc 34.5 g/dl (31.0-36.0); Mean Corpuscular Hemoglobin 31.3 pg (27.0-33.0); Mean Corpuscular Volume 90.6 fL (80.0-98.0); Mean Platelet Volume 10.4 fL (9.4-12.4); Monocytes Absolute Auto 0.6 X10*3/uL (0.1-1.2); Monocytes Percent Auto 7.9 % (2-11); Neutrophils Percent Auto 73.7 % (45-73); Platelet Count 239 X10*3/uL (160-400); Red Blood Count 4.89 X10*6/uL (4.60-5.80); White Blood Count 8.1 X10*3/uL (4.8-10.8)
[2021-10-26 16:22] LABS: Sperm Urine NOTED; Squamous Epithelial Cell Urine 1+ /LPF
[2021-10-26 16:23] LABS: Alanine Aminotransferase 18 U/L (0-40); Albumin Level 4.7 g/dL (3.5-5.0); Alkaline Phosphatase 69 U/L (39-117); Anion Gap 12 (12-20); Aspartate Amino Transferase 40 U/L (5-37); Bilirubin Total 1.2 mg/dL (0.0-1.0); Blood Urea Nitrogen 18 mg/dL (9-16); Calcium 10.1 mg/dL (8.4-10.2); Carbon Dioxide 30 mmol/L (22-29); Chloride 105 mmol/L (96-108); Creatinine Clr Calc Pharmacy 61.3; Estimated Glomerular Filt Rate 51; Glucose Random 80 mg/dL (60-115); Potassium 4.2 mmol/L (3.3-5.1); Sodium 143 mmol/L (135-145); Total Protein 7.8 g/dL (6.5-8.0)
--- NOTE | 2021-10-26 17:16 | ED_ITS ---
HPI - General Adult General Chief complaint: General Medical Stated complaint: kidney pain Time Seen by Provider: 10/26/21 18:42 Source: patient Mode of arrival: ambulatory Limitations: language barrier History of Present Illness HPI narrative: 21-year-old male presents with left-sided flank pain and urinary hesitancy for about 2 weeks. Onset (ago): week(s) (2) Location: abdomen and left Radiation: non-radiation Severity: moderate Severity scale (1-10): 7 Quality: aching Pain Consistency: constant Relieving factors: none Exacerbating factors: eating and movement Associated symptoms: denies other symptoms Treatments prior to arrival: none Related Data Previous Rx's Medication Instructions Recorded hydroxyzine HCl 25 mg tablet 25 mg PO BID PRN 60 Days tab 04/22/20 mirtazapine 7.5 mg tablet 7.5 mg PO BEDTIME 30 Days #30 tab 04/22/20 naproxen 500 mg tablet 500 mg PO BID PRN #20 tab 11/17/20 tamsulosin 0.4 mg capsule (Flomax) 0.4 mg PO DAILY #30 cap 10/26/21 Allergies Allergy/AdvReac Type Severity Reaction Status Date / Time aripiprazole [From Abilify] AdvReac Restless/Ag Verified 10/26/21 15:43 itation methylphenidate AdvReac Restless/Ag Verified 10/26/21 15:43 [From Ritalin] itation Review of Systems Review of Systems: Constitutional: No Fever, No Chills ENT/Mouth: No sore throat Eyes: No Eye Pain, No Swelling, No Redness Cardiovascular: No Chest Pain, No SOB Respiratory: No Cough, No Sputum, No Wheezing Gastrointestinal: positive Nausea, positive Vomiting, No Diarrhea, positive abdominal pain Genitourinary: No Dysuria, positive urinary frequency, no Hematuria, positive Flank Pain, positive hesitancy Musculoskeletal: No joint pain, No Myalgias Skin: No Skin Lesions, No rash Neuro: No Weakness, No Numbness, No Headache Psych: No Anxiety/Panic, No Depression Heme/Lymph: No Bruising, No Lymphadenopathy Endocrine: No Polyuria, No Polydipsia Yes all other systems are reviewed and are negative PMFSH Past Medical History Attestation statement: The following information was validated with the patient. Source: old records reviewed Medical History Anxiety CKD (chronic kidney disease) Depression Hypertension PTSD (post-traumatic stress disorder) Surgical History H/O wrist surgery Social History Social History Household Members: Spouse Housing: Apartment Do you presently have visiting nurse or other home services: No Unable to assess alcohol history related to: Unknown Second Hand Smoke Exposure: No Substance Use Type: Marijuana Advance Directives: No Advance Directives Information Provided: No service: No Sexual orientation: Straight/Heterosexual Physical Exam ED Vital Signs: Vital Signs - 24 hr 10/26/21 15:39 10/26/21 17:43 10/26/21 19:26 Temperature 97.8 F 98.4 F Pulse Rate 60 52 74 Respiratory Rate 18 14 18 Blood Pressure 136/90 H 120/78 120/84 Pulse Oximetry 98 97 97 BMI result Body Mass Index 21.9 Appearance: Alert. Oriented X3. No acute distress. Eyes: Pupils equal, round and reactive to light. Sclera nonicteric. EOMI. ENT: Pharynx normal. Moist mucous membranes. Neck: Normal inspection. Neck supple. CVS: Normal heart rate and rhythm. Pulses normal. Respiratory: No respiratory distress. Breath sounds normal. Abdomen: Soft and left upper quadrant tenderness to palpation, left-sided CVA tenderness. Bladder not palpable. Skin: Skin warm and dry. Normal skin color. Normal skin turgor. Extremities: Gait balanced and coordinated. Neuro: No motor deficit. No sensory deficit. Cranial nerves 2-12 intact. Course Course Course Narrative: 21-year-old male presents with left-sided flank pain that has worsened over the past 2 weeks with urinary hesitancy. Patient does have a history of kidney disease and anxiety. Was admitted in April of 2020 for anxiety and had a Nephrology consult secondary to CKD and hypertension. Stated that the left- sided flank pain has never really resolved since he was diagnosed with kidney disease last year. Stated that he had changed his lifestyle, no longer drinks alcohol or smokes marijuana, does have a distant history of cocaine abuse. Physical exam shows left upper quadrant pain on palpation and left-sided CVA tenderness. While labs are unremarkable with the exception of the elevated BUN and creatinine which is consistent with his prior values, patients physical exam could indicate kidney stone, hydronephrosis. Will order CT scan of abdomen pelvis without contrast secondary to CKD. Will provide morphine and Toradol for pain management and a L of fluid. 18:49 discussion with patient regarding findings of bilateral nephrolithiasis. He does understand that he must follow-up with Urology and his overhead door technician Dr. Garrido. During my discussion of findings and discharge instructions, patient stated that he did have rectal bleeding because of constipation. At this time CT scan does not show any abdominal masses, patient will be referred to his primary care physician for this finding. States that he has a longstanding history of constipation since childhood. I did recommend and that he must follow up with Gastroenterology. Patient's verbalized understanding. Patient verbalized understanding. motor vehicle parts interpreter utilized for all corresp ondence. Google translate utilized for discharge instructions. Patient verbalized understanding of and agrees to plan of care to discharge home. Verbalized understanding of signs and symptoms indicating need for emergent intervention Medical Decision Making Differential Diagnosis Differential Diagnosis: Hydronephrosis, pyelo, kidney stones, acute abdomen Medical Records Medical records reviewed: Yes I reviewed the patient's medical records. Lab Data Lab results reviewed: Yes I reviewed the patient's lab results. Result diagrams: 10/26/21 15:48 10/26/21 15:48 Labs: Lab Results 10/26/21 10/26/21 10/26/21 Range/Units 15:48 15:48 15:48 WBC 8.1 (4.8-10.8) X10*3/uL RBC 4.89 (4.60-5.80) X10*6/uL Hgb 15.3 (14.0-18.0) g/dl Hct 44.3 (42.0-52.0) % MCV 90.6 (80.0-98.0) fL MCH 31.3 (27.0-33.0) pg MCHC 34.5 (31.0-36.0) g/dl RDW 12.0 (11.0-16.0) % Plt Count 239 (160-400) X10*3/uL MPV 10.4 (9.4-12.4) fL Immature Gran % (Auto) 0.2 (0.0-0.4) % Neut % (Auto) 73.7 H (45-73) % Lymph % (Auto) 17.5 L (20-40) % [place] % (Auto) 7.9 (2-11) % Eos % (Auto) 0.2 (0-4) % Baso % (Auto) 0.5 (0-2) % Lymph # (Auto) 1.4 (1.2-4.9) X10*3/uL [place] # (Auto) 0.6 (0.1-1.2) X10*3/uL Eos # (Auto) 0.0 (0.0-0.4) X10*3/uL Baso # (Auto) 0.0 (0.0-0.2) X10*3/uL Abs Immat Gran (auto) 0.02 (0.00-0.03) X10*3/uL Absolute Neuts (auto) 6.0 (2.0-8.3) x10*3/uL Absolute Nucleated RBC 0.000 (0.0-0.012) X10*3/uL Nucleated RBC % (auto) 0.0 (0.0-0.2) /100WBC Sodium 143 (135-145) mmol/L Potassium 4.2 (3.3-5.1) mmol/L Chloride 105 (96-108) mmol/L Carbon Dioxide 30 H (22-29) mmol/L Anion Gap 12 (12-20) BUN 18 H (9-16) mg/dL Creatinine 1.68 H (0.5-1.4) mg/dL Estim Creat Clear Calc 61.3 Estimated GFR 51 Random Glucose 80 (60-115) mg/dL Calcium 10.1 D (8.4-10.2) mg/dL Total Bilirubin 1.2 H (0.0-1.0) mg/dL AST 40 H (5-37) U/L ALT 18 (0-40) U/L Alkaline Phosphatase 69 (39-117) U/L Total Protein 7.8 (6.5-8.0) g/dL Albumin 4.7 (3.5-5.0) g/dL Urine Color YELLOW Urine Appearance HAZY Urine pH 6.0 (5.0-8.0) Ur Specific [place] 1.015 (1.005-1.025) Urine Protein 2+ H (NEG-TRACE) MG/DL Urine Glucose (UA) 100 H (NEG) MG/DL Urine Ketones NEG (NEG) MG/DL Urine Blood NEG (NEG) Urine Nitrite NEG (NEG) Ur Leukocyte Esterase NEG (NEG) Urine RBC 1-4 (0) /HPF Urine WBC 1-4 (0-4) /HPF Ur Squamous Epith Cells 1+ /LPF Urine Bacteria NONE /LPF Urine Sperm NOTED Imaging Data CT abdomen pelvis: Attestation: I personally reviewed and interpreted this imaging study as follows: Radiologist's impression: FINDINGS: LUNG BASES: The visualized lung bases are unremarkable.? LIVER, GALLBLADDER, AND BILIARY TREE: The liver is normal in size, shape, and attenuation. No focal hepatic lesion or biliary ductal dilatation is present. The gallbladder is unremarkable with no evidence of radiopaque gallstones, gallbladder wall thickening, or obvious pericholecystic inflammatory changes.? PANCREAS: Unremarkable.? SPLEEN: Unremarkable.? ADRENAL GLANDS: Unremarkable.? KIDNEYS AND URETERS: Left kidney is lobulated with parenchymal calcifications in lower pole measured 0.4 cm, in upper pole punctate, in interpolar cortex conglomerate of 2 0.3 and 0.4 cm calcifications. There is no hydroureteronephrosis. Right kidney revealed lobulated contour as well with nonobstructing interpolar 2 mm calculus. BLADDER: Unremarkable.? GASTROINTESTINAL TRACT: The small and large bowel are unremarkable. The appendix is unremarkable.? ABDOMINAL WALL: No significant hernia is appreciated.? LYMPH NODES: Normal. VASCULAR: Unremarkable. PELVIC VISCERA: Unremarkable.? OSSEOUS STRUCTURES: Unremarkable.? CT/CT abdomen pelvis wo con IMPRESSION: Bilateral nephrolithiasis more prominent on the left without hydroureteronephrosis? ? Fleischner guidelines were followed. Discharge Plan Discharge Clinical Impression: CKD (chronic kidney disease), Constipation, BRBPR (bright red blood per rectum), Bilateral kidney stones Patient Disposition: Home, Self-Care Instructions: Constipation (ED), Rectal Bleeding (ED), Kidney Stones (ED), Chronic Kidney Disease (ED), Chronic Kidney Disease Diet (DC), Acute Abdominal Pain (ED) Additional Instructions: Le evaluaron por dolor en el costado lino. La tomograf?a computarizada del abdomen y la pelvis indica c?lculos renales bilaterales. Por favor, seguimiento con Urolog?a. Te remit? al Dr. Ruiz. [place] Flomax 0,4 mg al d?a. Para el control del dolor, use Tylenol 650 mg cada 6 horas seg?n sea necesario. Krystal las instrucciones de javed, indic? que ten?a sangrado rectal. Debe realizar un seguimiento con he m?dico de atenci?n primaria para la remisi?n a gastroenterolog?a. Use MiraLax diariamente para ayudar con el estre?imiento. Para CKD, enfermedad renal cr?micaela, seguimiento con he nefr?logo establecido Dr. Garrido. Carol por elegir tootie departamento de emergencias para he evaluaci?n. Por favor, dwight un seguimiento con el m?dico de atenci?n primaria seg?n sea necesario. Regrese al departamento de emergencias por cualquier s?ntoma nuevo, preocupante o que empeore You were evaluated for left-sided flank pain. CT scan of abdomen and pelvis indicates bilateral kidney stones. Please follow-up with Urology. I referred you to Dr. Ruiz. Please take Flomax 0.4 mg daily. For pain management use Tylenol 650 mg every 6 hours as needed. During discharge instructions, you stated that you had rectal bleeding. You must follow-up with your primary care physician for gastroenterology referral. Use MiraLax daily to help with constipation. For CKD, chronic kidney disease, follow-up with your established overhead door technician Dr. Garrido. Thank you for choosing this emergency department for evaluation. Please follow-up with primary care physician as needed. Return to the emergency department for any new, concerning, or worsening symptoms. Prescriptions: New tamsulosin [Flomax] 0.4 mg capsule 0.4 mg PO DAILY Qty: 30 0RF No Action naproxen 500 mg tablet 500 mg PO BID PRN (Reason: pain) Qty: 20 0RF hydroxyzine HCl 25 mg Tablet 25 mg PO BID PRN (Reason: Anxiety) 60 Days 0RF mirtazapine 7.5 mg Tablet 7.5 mg PO BEDTIME 30 Days Qty: 30 0RF Referrals: Awais Ruiz MD [Physician] - (Bilateral kidney stones) Arthur Garrido MD [Physician] - (CKD) Bennett Sim [Physician] - (Rectal bleeding) Interventions: ED Discharge Assessment Last Done: 10/26/21 19:26 Discharge Date/Time: 10/26/21 19:27
[2021-10-26] MEDS: ondansetron HCL 4 MG/2 ML VIAL IVPUSH (17:40)
[2021-10-26] MEDS: Morphine Sulfate 2 MG/ML CARTRIDGE IVPUSH (17:40)
[2021-10-26] MEDS: 0.9 % Sodium Chloride 1,000 ML 999 ML IVCONT (17:42)
[2021-10-26 17:43] VITALS: BP 120/78; PULSE 52; RESP 14; O2SAT 97
--- NOTE | 2021-10-26 19:19 | PC.NURSE ---
Pt alert and oriented x4, calm and cooperative. Denies pain at this time. IV removed. Vitals stable. Pt and mom educated on dc, stated an understanding. Pt left to private car without issues.
[2021-10-26 19:26] VITALS: BP 120/84; PULSE 74; RESP 18; TEMP 36.9; O2SAT 97
== END 2021-10-26 19:27 | disposition home or self-care (01) ==
PROVIDERS: Emergency Provider Student in an Organized Health Care Education/Training Program; PCP Nurse Practitioner Family
DX: N20.0 Calculus of kidney (principal); K59.00 Constipation, unspecified; K62.5 Hemorrhage of anus and rectum; I12.9 Hypertensive chronic kidney disease with stage 1 through stage 4 chronic kidney disease, or unspecified chronic kidney disease; N18.9 Chronic kidney disease, unspecified
CPT/HCPCS: 36415; 74176; 80053; 81001; 85025; 96361; 96374; 96375; 99284; J2270; J2405

== ENCOUNTER 2021-10-27 11:10 | Emergency (ER) | payer OTHER, SELFPAY ==
[2021-10-27 11:35] VITALS: BP 128/84; PULSE 54; RESP 18; TEMP 35.8; O2SAT 99; BMI 18.0
--- NOTE | 2021-10-27 11:49 | ED_ITS ---
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 Mode of arrival: EMS Limitations: no limitations History of Present Illness MD complaint: feels depressed Onset (ago): month(s) Duration: getting worse History of same: Yes Relieving factors: none Exacerbating factors: other (has no medications or therapist) Associated psychiatric symptoms: depression Associated symptoms: other (not eating, sleeping, showering, walks around at night, not able to take care of himself) Treatments prior to arrival: none Related Data Previous Rx's Medication Instructions Recorded hydroxyzine HCl 25 mg tablet 25 mg PO BID PRN 60 Days tab 04/22/20 mirtazapine 7.5 mg tablet 7.5 mg PO BEDTIME 30 Days #30 tab 04/22/20 naproxen 500 mg tablet 500 mg PO BID PRN #20 tab 11/17/20 tamsulosin 0.4 mg capsule (Flomax) 0.4 mg PO DAILY #30 cap 10/26/21 hydroxyzine HCl 25 mg tablet 25 mg PO BID PRN #30 tab 10/27/21 mirtazapine 7.5 mg tablet 7.5 mg PO BEDTIME #14 tab 10/27/21 Allergies Allergy/AdvReac Type Severity Reaction Status Date / Time aripiprazole [From Abilify] AdvReac Restless/Ag Verified 10/26/21 15:43 itation methylphenidate AdvReac Restless/Ag Verified 10/26/21 15:43 [From Ritalin] itation Review of Systems Review of Systems: Constitutional : No Fever, No Chills ENT/Mouth : No Ear Pain, No Nasal Congestion, No sore throat Eyes: No Eye Pain, No Swelling, No Redness Cardiovascular : No Chest Pain, No SOB Respiratory : No Cough, No Sputum, No Dyspnea Gastrointestinal : No Nausea, No Vomiting, No Diarrhea, No Hematochezia, No Randa neisha Genitourinary : No Dysuria, No Urinary Frequency, No Hematuria Musculoskeletal : No Myalgias Skin : No Skin Lesions, No rash Neuro : No Weakness, No Numbness, No Paresthesias, No Dizziness, No Headache Psych : positive Anxiety, positive Depression, no SI/HI Heme/Lymph: No Lymphadenopathy Endocrine : No Polyuria, No Polydipsia All other systems reviewed and are negative [facility] Past Medical History Attestation statement: The following information was validated with the patient. Medical History Anxiety CKD (chronic kidney disease) Depression Hypertension PTSD (post-traumatic stress disorder) Surgical History H/O wrist surgery Social History Social History Household Members: Spouse Housing: Apartment Do you presently have visiting nurse or other home services: No Unable to assess alcohol history related to: Unknown Alcohol intake: never Patient Tobacco Use Status: Never used Tobacco Second Hand Smoke Exposure: No Substance Use Type: Marijuana Advance Directives: No service: No Sexual orientation: Straight/Heterosexual Physical Exam Vital Signs: Vital Signs: Last Vital Signs Temp 96.5 F L 10/27/21 11:35 Pulse 50 10/27/21 13:19 Resp 18 10/27/21 13:19 BP 113/74 10/27/21 13:19 Pulse Ox 98 10/27/21 13:19 BMI result Body Mass Index 18.0 Appearance: Alert. Oriented X3. No acute distress. Flat affect, withdrawn Eyes: Pupils equal, round and reactive to light. ENT: Pharynx normal. Neck: Normal inspection. Neck supple. CVS: Normal heart rate and rhythm. Pulses normal. Respiratory: No respiratory distress. Breath sounds normal. Abdomen: Soft and nontender. Skin: Skin warm and dry. Normal skin color. Normal skin turgor. Extremities: No lower extremity edema. No calf ttp Neuro: Oriented X 3. No motor deficit. No sensory deficit. CN 2-12 intact Course Course Course Narrative: Physician observation started at 1pm. Patient placed in physician observation because the patient needed more time for [facility] to assess the need for depression and psychiatric admission. At the time observation was started the patient's vitals were stable, patient is alert and oriented, Neuro: nonfocal, CV RRR, Lungs clear no SI/HI already plugged in and [facility] set up services yesterday but ukrainian speaking staff did not call - he has urgent care follow up Physician observation ended at 3pm. Patient seen and cleared by crisis. follow up as outpatient. NAD, lungs clear, CV RRR, Abd nontender, Neuro intact. Disposition is for home. MDM - Psych MDM Narrative Medical decision making narrative: 21 yo male with hx of kidney stones, MDD off of medications x 6 months has no prescriber - at this time will need COVID swab, drug screen, BHN consult - no SI at this time Lab Data Labs: Lab Results 10/27/21 Range/Units 12:18 COVID-19 ([facility]ERALD) Negative (Negative) COVID-19 Clin Com See Note Discharge Plan Discharge Clinical Impression: Depression Qualifiers: Depression Type: unspecified Qualified Code(s): F32.A - Depression, unspecified Patient Disposition: Home, Self-Care Instructions: Depression (ED) Additional Instructions: return to ED for any worsening symptoms or concerns Prescriptions: New hydroxyzine HCl 25 mg tablet 25 mg PO BID PRN (Reason: anxiety) Qty: 30 0RF mirtazapine 7.5 mg tablet 7.5 mg PO BEDTIME Qty: 14 0RF No Action naproxen 500 mg tablet 500 mg PO BID PRN (Reason: pain) Qty: 20 0RF hydroxyzine HCl 25 mg Tablet 25 mg PO BID PRN (Reason: Anxiety) 60 Days 0RF mirtazapine 7.5 mg Tablet 7.5 mg PO BEDTIME 30 Days Qty: 30 0RF tamsulosin [Flomax] 0.4 mg capsule 0.4 mg PO DAILY Qty: 30 0RF Print Language: Guamanian
[2021-10-27 13:01] LABS: COVID-19 Test Negative (Negative); IDNOW Serial# 16C4AD1C
[2021-10-27 13:19] VITALS: BP 113/74; PULSE 50; RESP 18; O2SAT 98
== END 2021-10-27 15:16 | disposition home or self-care (01) ==
PROVIDERS: Emergency Provider Emergency Medicine; PCP Nurse Practitioner Family
DX: F32.A Depression, unspecified (principal); I12.9 Hypertensive chronic kidney disease with stage 1 through stage 4 chronic kidney disease, or unspecified chronic kidney disease; N18.9 Chronic kidney disease, unspecified; Z20.822 Contact with and (suspected) exposure to COVID-19
CPT/HCPCS: 87635; 99283; 99284

== ENCOUNTER 2022-01-01 14:46 | Emergency (ER) | payer OTHER, SELFPAY ==
[2022-01-01 15:02] VITALS: BP 129/78; PULSE 66; RESP 16; TEMP 36.9; O2SAT 99; BMI 22.8
[2022-01-01 15:40] LABS: Strep A Nucleic Acid Negative (Negative)
[2022-01-01 15:45] LABS: COVID-19 Test Negative (Negative); IDNOW Serial# 16C4AD1C; Influenza A Negative (Negative); Influenza B2 Negative (Negative)
--- NOTE | 2022-01-01 17:23 | ED_ITS ---
HPI - General Adult General Chief complaint: Upper Respiratory Symptoms Stated complaint: neck pain Time Seen by Provider: 01/01/22 17:23 Source: patient Mode of arrival: ambulatory Limitations: no limitations History of Present Illness HPI narrative: Patient is a 21 year old male presenting to the emergency department today with a sore throat and a lump on the right side of his neck. Patient states that since this morning he has had a sore throat and the swelling of a bump to the right side of his neck. Patient denies any dizziness, lightheadedness, abdominal pain, nausea, vomiting, fever, chills, blurry vision, double vision, loss of vision, chest pain, difficulty breathing, shortness of breath, back pain, night sweats, pain with urination, increased urinary frequency, increased urinary urge ncy, blood in his urine or stool, syncope or a near syncopal episode, recent trauma or falls, bowel incontinence, bladder incontinence, bowel retention, bladder retention, or any other complaints at this time. Onset (ago): hour(s) Location: neck Radiation: non-radiation Severity: mild Severity scale (1-10): 1 Relieving factors: none Exacerbating factors: none Associated symptoms: denies other symptoms Treatments prior to arrival: none Related Data Previous Rx's Medication Instructions Recorded hydroxyzine HCl 25 mg tablet 25 mg PO BID PRN Anxiety 60 days 04/22/20 mirtazapine 7.5 mg tablet 7.5 mg PO BEDTIME 30 days #30 tabs 04/22/20 naproxen 500 mg tablet 500 mg PO BID PRN pain #20 tabs 11/17/20 tamsulosin 0.4 mg capsule (Flomax) 0.4 mg PO DAILY #30 caps 10/26/21 hydroxyzine HCl 25 mg tablet 25 mg PO BID PRN anxiety 0 days 10/27/21 #30 tabs mirtazapine 7.5 mg tablet 7.5 mg PO BEDTIME #14 tabs 10/27/21 prednisone 20 mg tablet 20 mg PO DAILY 12 days #26 tabs 01/01/22 Allergies Allergy/AdvReac Type Severity Reaction Status Date / Time aripiprazole [From Abilify] AdvReac Restless/Ag Verified 10/26/21 15:43 itation methylphenidate AdvReac Restless/Ag Verified 10/26/21 15:43 [From Ritalin] itation Review of Systems Constitutional: Constitutional: Reports no additional constitutional complaints, Denies chills, Denies fever(s) and Denies night sweats Eyes: Eyes: Reports no additional eye complaints, Denies blurry vision, Denies change in vision, Denies diplopia, Denies eye discharge, Denies loss of vision and Denies eye pain ENT: Denies dizziness and Reports sore throat Cardiovascular: Cardiovascular: Reports no additional cardiovascular complaints, Denies chest pain, Denies lightheadedness, Denies Loss of Consciousness and Denies dyspnea Respiratory: Respiratory: Reports no additional respiratory complaints and Denies dyspnea Gastrointestinal: Gastrointestinal: Reports no additional gastrointestinal complaints, Denies abdominal pain, Denies melena, Denies hematochezia, Denies ch vinnie in bowel habits and Denies change in stool character Genitourinary: Genitourinary: Reports no additional male genitourinary complaints, Denies hematuria, Denies oliguria, Denies difficulty urinating, Denies dysuria, Denies urinary frequency, Denies urinary hesitancy, Denies urinary incontinence and Denies urinary urgency Musculoskeletal: Musculoskeletal: Reports no additional musculoskeletal complaints, Denies numbness and Denies tingling Neurologic: Denies dizziness, Denies loss of vision, Denies numbness and Denies tingling Psychiatric: Psychiatric: Reports no additional psychiatric complaints Endocrine: Endocrine: Reports no additional endocrine complaints Hematologic/Lymphatic: Hematologic/Lymphatic: Reports no additional hematologic/lymphatic complaints Allergic/Immunologic: Allergic/Immunologic: Reports no additional allerg ic/immunologic complaints [facility] Past Medical History Attestation statement: The following information was validated with the patient. Source: old records reviewed Medical History Anxiety CKD (chronic kidney disease) Depression Hypertension PTSD (post-traumatic stress disorder) Surgical History H/O wrist surgery Social History Social History Household Members: Spouse Housing: Apartment Do you presently have visiting nurse or other home services: No Unable to assess alcohol history related to: Unknown Alcohol intake: never Patient Tobacco Use Status: Never used Tobacco Second Hand Smoke Exposure: No Substance Use Type: Marijuana Advance Directives: No Advance Directives Information Provided: No service: No Sexual orientation: Straight/Heterosexual Physical Exam ED Vital Signs: Vital Signs - 24 hr 01/01/22 15:02 Temperature 98.5 F Pulse Rate 66 Respiratory Rate 16 Blood Pressure 129/78 Pulse Oximetry 99 Oxygen Delivery Method Room Air BMI result Body Mass Index 22.8 Const General: cooperative, no acute distress, alert and awake Nutritional Appearance: well nourished Orientation/consciousness: patient oriented x3 Limitations: no limitations HENMT Head: Yes normal to inspection and Yes atraumatic Ears: hearing grossly normal bilaterally and external ears normal General nose exam: Normal external nose present, no nasal discharge noted and no epistaxis Face and sinus: Yes normal facial exam, No abrasion and No laceration Mouth: Normal oral and palatal mucosa present, no drooling and no muffled voice Eyes General: appearance normal, both eyes and all related structures Periorbital: periorbital findings normal Eyelids: Yes eyelids normal Conjunctivae: conjunctivae normal Pupils: Equal, round and reactive pupils present EOM: EOMs intact bilaterally Neck Neck: Yes normal visual inspection, Yes full ROM and Yes no lymphadenopathy Chest Chest palpation & inspection: normal inspection of the chest Resp Effort & Inspection: normal respiratory effort and able to speak in complete sen tences Auscultation: clear to auscultation bilaterally Cardio Rate: regular rate Rhythm: regular rhythm GI Inspection: Yes normal to inspection Neuro General: patient oriented x3 and moves all extremities Cranial nerves: Yes Equal, round and reactive pupils present Cognition (Neuro): normal cognition Motor exam (neuro): 5/5 motor strength present throughout Sensory Exam: Normal double simultaneous stimulation for sensation Coordination: [id number] test normal Extrem General: Yes normal to inspection, Yes full ROM and Yes capillary refill normal Psych Appearance: grossly normal Mental Status: mental status grossly normal Affect: normal affect Attitude: cooperative Thought process: Normal thought process present Thought content: Normal thought content present Insight: Good insight present (Psych) Medical Decision Making MDM Narrative Medical decision making narrative: Patient is a 21 year old male presenting to the emergency department today with a sore throat and a bump on the right side of his neck. Patient's physical exam was unremarkable. Patient was insistent that there was a lump of some sort on the right side of his neck however, I did not appreciate anything on the patient's physical examination. Patient's rapid COVID, influenza, and strep swabs were all negative. I explained my physical exam findings as well as all test results to the patient. I answered all questions asked by the patient. I stressed the importance of the patient taking his medication as prescribed. I stressed the importance of the patient following up with his primary care provider. I stressed the importance of the patient returning to the emergency department immediately if his symptoms were to worsen or if he were to develop any dizziness, shortness of breath, difficulty breathing, chest pain, blurry vision, loss of vision, nausea, vomiting, abdominal pain, fever, chills, back pain, or any other complaints. Patient verbalized agreement and understanding with this treatment plan and discharge. Medical Records Medical records reviewed: Yes I reviewed the patient's medical records. Lab Data Lab results reviewed: Yes I reviewed the patient's lab results. Result diagrams: 01/01/22 15:00 01/01/22 Unknown Labs: Lab Results 01/01/22 01/01/22 01/01/22 Range/Units 15:00 15:20 15:20 WBC Cancelled RBC Cancelled Hgb Cancelled Hct Cancelled MCV Cancelled MCH Cancelled MCHC Cancelled RDW Cancelled Plt Count Cancelled MPV Cancelled Immature Gran % (Auto) Cancelled Neut % (Auto) Cancelled Lymph % (Auto) Cancelled Marin % (Auto) Cancelled Eos % (Auto) Cancelled Baso % (Auto) Cancelled Lymph # (Auto) Cancelled Marin # (Auto) Cancelled Eos # (Auto) Cancelled Baso # (Auto) Cancelled Abs Immat Gran (auto) Cancelled Absolute Neuts (auto) Cancelled Absolute Nucleated RBC Cancelled Nucleated RBC % (auto) Cancelled Sodium Potassium Chloride Carbon Dioxide Anion Gap BUN Creatinine Estim Creat Clear Calc Estimated GFR Random Glucose Calcium Total Bilirubin AST ALT Alkaline Phosphatase Total Protein Albumin COVID-19 ([facility]ERALD) (Negative) COVID-19 Clin Com Influenza Type A (RUPAL) Negative (Negative) Influenza Type B (RUPAL) Negative (Negative) Influenza A & B Note See Note S. pyogenes GrpA RUPAL Negative (Negative) 01/01/22 01/01/22 Range/Units 15:20 Unknown WBC RBC Hgb Hct MCV MCH MCHC RDW Plt Count MPV Immature Gran % (Auto) Neut % (Auto) Lymph % (Auto) Marin % (Auto) Eos % (Auto) Baso % (Auto) Lymph # (Auto) Marin # (Auto) Eos # (Auto) Baso # (Auto) Abs Immat Gran (auto) Absolute Neuts (auto) Absolute Nucleated RBC Nucleated RBC % (auto) Sodium Cancelled Potassium Cancelled Chloride Cancelled Carbon Dioxide Cancelled Anion Gap Cancelled BUN Cancelled Creatinine Cancelled Estim Creat Clear Calc Cancelled Estimated GFR Cancelled Random Glucose Cancelled Calcium Cancelled Total Bilirubin Cancelled AST Cancelled ALT Cancelled Alkaline Phosphatase Cancelled Total Protein Cancelled Albumin Cancelled COVID-19 (JERALD) Negative (Negative) COVID-19 Clin Com See Note Influenza Type A (RUPAL) (Negative) Influenza Type B ([facility]UPAL) (Negative) Influenza A & B Note S. pyogenes GrpA RUPAL (Negative) Discharge Plan Discharge Clinical Impression: Viral illness Patient Disposition: Home, Self-Care Instructions: Lymphadenopathy (ED), Viral Syndrome (ED) Additional Instructions: Follow up with your primary care provider. Return to the emergency department immediately if your symptoms worsen or if you develop any dizziness, shortness of breath, difficulty breathing, chest pain, blurry vision, loss of vision, nausea, vomiting, abdominal pain, fever, chills, back pain, or any other complaints. Prescriptions: New prednisone 20 mg tablet 20 mg PO DAILY 12 Days Qty: 26 0RF Rx Instructions: Take 3 tablets for 5 days THEN; Take 2 tablets for 4 days THEN; Take 1 tablet for 3 days No Action naproxen 500 mg tablet 500 mg PO BID PRN (Reason: pain) Qty: 20 0RF hydroxyzine HCl 25 mg Tablet 25 mg PO BID PRN (Reason: Anxiety) 60 Days 0RF mirtazapine 7.5 mg Tablet 7.5 mg PO BEDTIME 30 Days Qty: 30 0RF tamsulosin [Flomax] 0.4 mg capsule 0.4 mg PO DAILY Qty: 30 0RF hydroxyzine HCl 25 mg tablet 25 mg PO BID PRN (Reason: anxiety) Qty: 30 0RF mirtazapine 7.5 mg tablet 7.5 mg PO BEDTIME Qty: 14 0RF Referrals: [facility] [Provider Group] (Call to establish and follow up with an Ears, Nose, and Throat specialist. ) [facility] [Provider Group] (Call to establish and follow up with a primary care provider. If you already have one, please call and follow up with them. ) [facility] [Provider Group] (Call to establish and follow up with a primary care provider. If you already have one, please call and follow up with them. ) [facility] Primary Care,[facility] [Provider Group] (Call to establish and follow up with a primary care provider. If you already have one, please call and follow up with them. ) Stand Alone Forms: Work/School Release Interventions: ED Discharge Assessment Last Done: 01/01/22 18:27 Discharge Date/Time: 01/01/22 18:29 Print Language: Luxembourger
== END 2022-01-01 18:29 | disposition home or self-care (01) ==
PROVIDERS: Emergency Provider Emergency Medicine
DX: B34.9 Viral infection, unspecified (principal); Z20.822 Contact with and (suspected) exposure to COVID-19; J02.9 Acute pharyngitis, unspecified; I12.9 Hypertensive chronic kidney disease with stage 1 through stage 4 chronic kidney disease, or unspecified chronic kidney disease; N18.9 Chronic kidney disease, unspecified
CPT/HCPCS: 36415; 80053; 85025; 87502; 87635; 87651; 99282; 99283